=== PATIENT | male | born 1995 | race Caucasian/White ===

== ENCOUNTER 2022-04-09 13:13 | Emergency (ER) | payer OTHER ==
[~2022-04-09] VITALS: Ht 165.1 cm; Wt 56.5 kg
[~2022-04-09 13:13] MED LIST: NO MEDS
[2022-04-09 13:21] VITALS: BP 151/87
--- NOTE | 2022-04-09 13:26 | NUR ---
PATIENT AMBULATED TO BED 4.
[2022-04-09] MEDS ORDERED: KETOROLAC 30 MG/ML VIAL IVP ONE (13:40)
[2022-04-09] MEDS ORDERED: DEXAMETHASONE 10 MG/ML VIAL IVP ONE (13:50)
[2022-04-09] MEDS ORDERED: AMPICILLIN/SULBACTAM 3 GM in NACL 0.9% 100 ML IV ONE (13:50)
--- NOTE | 2022-04-09 14:05 | NUR ---
LAB AT BEDSIDE.
--- NOTE | 2022-04-09 14:05 | NUR ---
26 Y/O M BIB SELF C/O OF PAIN IN SWALLOWING 9/10 ON AND OFF FOR 2 DAYS BUT WORSE TODAIY. DIFFICULTY SWALLOWING AND SWELLING IN THE RIGHT SIDE OF THE NECK X 2 WEEKS. PT UNABLE TO OPEN MOUTH FULLY NKA PMH: DENIES
[2022-04-09] MEDS ORDERED: AMPICILLIN/SULBACTAM 3 GM VIAL ONE (14:12)
[2022-04-09 14:33] LABS: BASOPHILS # (AUTO) 0.1 K/uL (0.00-0.22); BASOPHILS % (AUTO) 1.2 % (0.0-2.0); EOSINOPHILS # (AUTO) 0.1 K/uL (0-0.4); EOSINOPHILS % (AUTO) 0.6 % (0.0-4.0); HEMATOCRIT 38.6 % (36-52); HEMOGLOBIN 13.1 g/dL (12.0-18.0); LYMPHOCYTES # (AUTO) 1.1 K/uL (2.0-11.5); LYMPHOCYTES % (AUTO) 9.1 % (20.5-51.1); MEAN CORPUSCULAR HEMOGLOBIN 31 pg (27-31); MEAN CORPUSCULAR HGB CONC 34 g/dL (33-37); MEAN CORPUSCULAR VOLUME 90.3 fL (80-94); MONOCYTES # (AUTO) 0.8 K/uL (0.8-1.0); MONOCYTES % (AUTO) 6.6 % (1.7-9.3); NEUTROPHILS # (AUTO) 10.3 K/uL (1.8-7.7); NEUTROPHILS % (AUTO) 82.5 % (42.2-75.2); PLATELET COUNT (AUTO) 284 K/uL (140-450); RED BLOOD CELL COUNT(AUTO) 4.28 MIL/uL (4.20-6.10); RED CELL DISTRIBUTION WIDTH 13.4 % (11.6-13.7); WHITE BLOOD COUNT (AUTO) 12.4 K/uL (4.8-10.8)
[2022-04-09 14:47] LABS: ALBUMIN 3.5 g/dL (3.4-5.0); ANION GAP 8.6 (8-16); CARBON DIOXIDE 28.6 mmol/L (21-32); CREATININE 0.8 mg/dL (0.6-1.3); POTASSIUM 3.2 mmol/L (3.5-5.1); TOTAL BILIRUBIN 0.4 mg/dL (0.0-1.0)
--- NOTE | 2022-04-09 15:08 | NUR ---
PT TO CT BY WHEELCHAIR.
[2022-04-09] MEDS ORDERED: AMOX-999 PO (15:57)
[2022-04-09] MEDS ORDERED: IBUP-1842 PO (15:57)
[2022-04-09 16:05] VITALS: BP 131/72
--- NOTE | 2022-04-09 16:07 | NUR ---
Patient discharged with v/s stable. Written and verbal after care instructions given and explained. Patient alert, oriented and verbalized understanding of instructions. Ambulatory with steady gait. All questions addressed prior to discharge. ID band removed. Patient advised to follow up with PMD. Rx of AMOXIICILLIN, IBUPROFEN given. Opportunity to ask questions provided and answered.
--- NOTE | 2022-04-09 16:08 | NUR ---
The patient's care was reviewed and supervised by Niesha Thomson RN.
== END 2022-04-09 16:07 | disposition home or self-care (01) ==
LOC: MED 13:13
DX: K11.20 Sialoadenitis, unspecified (principal)
CPT/HCPCS: 36415; 70491; 80053; 85025; 87040; 96365; 96367; 96375; 99285; J0295; J1100; J1885; Q9967